=== PATIENT | female | born 1975 | race Caucasian/White ===

== ENCOUNTER 2022-08-26 18:23 | Observation (INO) | payer MEDICAID, SELFPAY ==
[2022-08-26 18:28] VITALS: BP 137/90; PULSE 127; RESP 18; TEMP 36.9; O2SAT 98
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
--- NOTE | 2022-08-26 18:46 | USR_ITS ---
PROCEDURE INFORMATION: Exam: US Duplex Right Lower Extremity Veins, Limited Exam date and time: 08/26/2022 7:18 PM Age: 46 years old Clinical indication: Edema, localized; Lower extremity, right; Additional info: Redness swelling, R/O dvt TECHNIQUE: Imaging protocol: Real-time duplex ultrasound of the right extremity with 2-D martinez scale, color Doppler flow and spectral waveform analysis including responses to compression and other maneuvers (when performed) with image documentation. Limited exam was focused on the right lower extremity veins. COMPARISON: CR (LOW EXM, ) 08/26/2022 7:14 PM FINDINGS: Right deep veins: Unremarkable. The common femoral, femoral, proximal profunda femoral and popliteal veins are patent without thrombus. Normal Doppler waveforms. Normal compressibility and/or augmentation response. Right superficial veins: Unremarkable. Saphenofemoral junction is patent without thrombus. Soft tissues: Unremarkable. US/[place] [id number] IMPRESSION: No evidence of deep vein thrombosis.
--- NOTE | 2022-08-26 18:55 | XRR_ITS ---
PROCEDURE INFORMATION: Exam: XR Chest Exam date and time: 08/26/2022 7:13 PM Age: 46 years old Clinical indication: Other: Crackles; Additional info: Crackles in lung TECHNIQUE: Imaging protocol: Radiologic exam of the chest. Views: 1 view. COMPARISON: No relevant prior studies available. FINDINGS: Lungs: Unremarkable. No consolidation. Pleural spaces: Unremarkable. No pleural effusion. No pneumothorax. Heart/Mediastinum: Unremarkable. No cardiomegaly. Bones/joints: Unremarkable. XR/XR chest 1V portable [id number] IMPRESSION: No acute findings.
--- NOTE | 2022-08-26 18:57 | XRR_ITS ---
PROCEDURE INFORMATION: Exam: XR Right Foot Exam date and time: 08/26/2022 7:14 PM Age: 46 years old Clinical indication: Cellulitis; Foot and toes; Right; Patient HX: Wounds; Additional info: Injury toe TECHNIQUE: Imaging protocol: Radiologic exam of the right foot. Views: 3 or more views. COMPARISON: No relevant prior studies available. FINDINGS: Bones/joints: Osseous structures are intact. Negative for fracture. Soft tissues: Soft tissue swelling within the foot and distal lower extremity. XR/XR foot RT min 3V* [id number] IMPRESSION: 1. No acute osseous abnormalities. 2. Soft tissue swelling within the foot and distal lower extremity.
[2022-08-26 19:00] LABS: Basophils % 0.3 %; Hematocrit 40.6 % (37.0-47.0); Hemoglobin 13.1 g/dL (11.5-15.3); Lymphocytes # 0.7 10^3/uL (0.8-4.8); Lymphocytes % 4.6 %; Mean Corpuscular HGB Conc 32.3 g/dL (30.0-36.0); Mean Corpuscular Hemoglobin 27.9 pg (28.0-34.0); Mean Corpuscular Volume 86.4 fl (81-99); Mean Platelet Volume 10.8 fL (7.4-10.4); Monocytes # 0.6 10^3/uL (0.2-0.9); Monocytes % 3.9 %; Neutrophils # 14.34 10^3/uL (1.8-7.7); Neutrophils % 90.6 %; Nucleated Red Blood Cells % 0 %; Platelet Count 226 10^3/cmm (130-400); Red Cell Distribution Width 13.5 % (12.1-15.1); White Blood Count 15.8 10^3/uL (4.0-10.0)
[2022-08-26 19:15] LABS: HCG, Serum Qual Negative (Negative)
[2022-08-26 19:18] LABS: Alanine Aminotransferase 11 U/L (0-33); Albumin Level 3.8 g/dL (3.5-5.2); Alkaline Phosphatase 65 U/L (35-105); Anion Gap 18.6 (5-19); Aspartate Amino Transferase 15 U/L (0-32); Blood Urea Nitrogen 13 mg/dL (6-20); Calcium 9.2 mg/dL (8.5-10.5); Carbon Dioxide 21 mmol/L (22-29); Chloride 102 mmol/L (98-107); Globulin 3.7 g/dL (1.3-4.6); Glomerular Filtration Rate 90.9 mL/min (90-130); Glucose 192 mg/dL (65-115); Lipase 15 U/L (13-60); Osmolality Calculated 291 mOsm/kg (285-295); Potassium 3.6 mmol/L (3.5-5.1); Sodium 138 mmol/L (136-145); Total Protein 7.5 g/dL (6.6-8.7)
[2022-08-26] MEDS: sodium chloride 0.9% 1,000 ML 999 ML IV (19:19)
[2022-08-26] MEDS: sulfamethoxazole-trimeth DS 160-800 mg Tablet 1 TAB PO (20:14)
[2022-08-26] MEDS: cefTRIAXone 1,000 MG in sodium chloride 0.9% (plus) 50 ML 100 MG IV (20:14)
--- NOTE | 2022-08-26 20:17 | CTR_ITS ---
PROCEDURE INFORMATION: Exam: CT Right Lower Extremity With Contrast, Foot Exam date and time: 08/26/2022 7:46 PM Age: 46 years old Clinical indication: Pain; Foot; Right; Additional info: R/O abscess, osteomy. TECHNIQUE: Imaging protocol: CT of the right lower extremity with intravenous contrast was performed. Exam focused on the foot. Radiation optimization: All CT scans at this facility use at least one of these dose optimization techniques: automated exposure control; mA and/or kV adjustment per patient size (includes targeted exams where dose is matched to clinical indication); or iterative reconstruction. Contrast material: OMNI 350; Contrast volume: 100 ml; Contrast route: INTRAVENOUS (IV); REPORTING DATA: Count of CT and Cardiac NM exams in prior 12 months: This patient has received 0 known CTs and 0 known cardiac nuclear medicine studies in the 12 months prior to the current study. COMPARISON: CR (LOW EXM, ) 08/26/2022 7:14 PM RADIATION DOSE METRICS: Total DLP (mGy-cm): 443.22 FINDINGS: Bones/joints: No acute fracture or dislocation. No irregular cortical erosive changes. Soft tissues: Extensive subcutaneous edema and skin thickening within the distal lower extremity and foot. No definable walled-off fluid collection/abscess is seen. No subcutaneous emphysema. Scattered coarse calcifications noted along the subcutaneous tissues of the anterior distal lower extremity. CT/CT foot RT w con [id number] IMPRESSION: 1. No evidence of abscess or osteomyelitis. 2. Extensive subcutaneous edema and skin thickening within the distal lower extremity and foot.
[2022-08-26] MEDS: iohexol 350 mg/mL 500 mL Btl (per mL) IV (20:24)
[2022-08-26 20:29] LABS: Lactic Sepsis W/Reflex 1.6 mmol/L (0.5-2.2)
[2022-08-26 20:44] LABS: C Reactive Protein 325.4 mg/L (0.0-4.9)
[2022-08-26 20:49] LABS: Erythrocyte Sedimentation Rate 40 mm/hr (0-15)
[2022-08-26] MEDS: piperacillin-tazobactam 3.375 GM in sodium chloride 0.9% (plus) 50 ML IV (21:02)
[2022-08-26] MEDS: hyDROXYzine 25 mg Capsule PO (21:03)
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
[2022-08-26 21:57] VITALS: BP 124/80; PULSE 124; RESP 20; TEMP 37.1; O2SAT 99
[2022-08-26 22:15] VITALS: O2SAT 98
[2022-08-26 22:40] VITALS: BMI 39.6
--- NOTE | 2022-08-26 23:10 | PC.PHAR ---
Pharmacokinetic dosing service Date: 08/27/22 Time: 2314 Objective: Patient: Donna Cosby Floor: 278-2 Age: 46 yo Serum creatinine: 0.7 mg/dL Height: 63.0 Inches Weight (kg): 101.661 Diagnosis: Relevant medical/social history: Cultures and sensitivities: Other labs: Assessment: IBW (kg): 52.40 Dosing wt(kg): 101.661 Estimated Creatinine clearance (ml/min): 84.8 CRCL method: Cockcroft and Gault using ibw(default). Drug selected: Vancomycin Loading dose (mg): 0 Vd (liters): 91.5 (factor used: 0.9 L/kg) Farhan (hr-1): 0.075 Half life (hrs): 9.24 Recommended dose: 1500 mg Interval: 12 hrs Infusion time (hrs): 1.5 Predicted peak (mcg/mL): 26.1 Predicted trough (mcg/mL): 11.87 Total body weight is being used for vancomycin dosing. Renal function is stable [ ] /unstable [ ] Recommendations: Give Vancomycin 1500 mg q 12 hrs with an expected Cpeak of 26.1 mcg/ml and an expected Ctrough of 11.87 mcg/ml Renal dosing of other antibiotics (review renal dosing of other medications and list guidelines here): Thank you for the consult, will continue to follow. Signature: Sharlene Weiss [facility]
[2022-08-26] MEDS: sodium chloride 0.9% 1,000 ML 50 ML IV (23:34)
[2022-08-26] MEDS: vancomycin 1,500 MG/300 ML PIGGYBACK 200 MG IV (23:35)
[2022-08-26 23:39] LABS: Procalcitonin 5.04 ng/mL (0-0.5); Thyroid Stimulating Hormone 2.19 uIU/mL (0.27-4.20); Vitamin B12 573 pg/mL (232-1245)
[2022-08-26 23:40] LABS: Folate Level 4.5 ng/mL (4.8-37.3)
[2022-08-26] MEDS: heparin 5,000 unit/mL INJ 1 mL 5000 UNIT SUBCUT (23:47)
[2022-08-27] VITALS (8 sets, daily range): BP systolic 107–129; BP diastolic 71–83; PULSE 98–116; RESP 15–23; TEMP 36.7–39.1; O2SAT 95–97
[2022-08-27] MEDS: acetaminophen 325 mg Tablet 650 MG PO ×3 (01:07→20:36)
[2022-08-27 02:46] LABS: Amphetamines Screen Urine Negative (Negative); Barbiturates Screen Urine Negative (Negative); Benzodiazepines Screen Urine Negative (Negative); Cocaine Screen Urine Negative (Negative); Opiate Screen Urine Negative (Negative); PCP Screen Urine Negative (Negative); THC Screen Urine Negative (Negative)
[2022-08-27 04:46] LABS: Basophils % 0.1 %; Hematocrit 38.7 % (37.0-47.0); Hemoglobin 12.4 g/dL (11.5-15.3); Lymphocytes # 0.7 10^3/uL (0.8-4.8); Lymphocytes % 5.3 %; Mean Corpuscular Hemoglobin 27.9 pg (28.0-34.0); Mean Platelet Volume 10.9 fL (7.4-10.4); Monocytes # 0.6 10^3/uL (0.2-0.9); Monocytes % 4.1 %; Neutrophils # 11.89 10^3/uL (1.8-7.7); Neutrophils % 88.9 %; Nucleated Red Blood Cells % 0 %; Platelet Count 181 10^3/cmm (130-400); Red Blood Count 4.45 10^6/uL (4.1-5.3); Red Cell Distribution Width 13.4 % (12.1-15.1); White Blood Count 13.4 10^3/uL (4.0-10.0)
[2022-08-27 05:05] LABS: Estmated Average Glucose 137; Hemoglobin A1C 6.4 % (4.0-6.0)
[2022-08-27 05:13] LABS: Alanine Aminotransferase 18 U/L (0-33); Alkaline Phosphatase 60 U/L (35-105); Anion Gap 14.2 (5-19); Aspartate Amino Transferase 31 U/L (0-32); Blood Urea Nitrogen 10 mg/dL (6-20); Calcium 8.4 mg/dL (8.5-10.5); Carbon Dioxide 22 mmol/L (22-29); Chloride 109 mmol/L (98-107); Chol HDL Ratio 1.59 mg/dL (0.0-4.40); Cholesterol 113 mg/dL (0-200); Globulin 3.2 g/dL (1.3-4.6); Glomerular Filtration Rate 77.9 mL/min (90-130); Glucose 209 mg/dL (65-115); HDL Cholesterol 71 mg/dL (60-100); LDL Cholesterol Calculated 30 mg/dL (50-129); LDL HDL Ratio 0.42 RATIO (0.00-3.22); Magnesium 1.9 mg/dL (1.7-2.3); Osmolality Calculated 299 mOsm/kg (285-295); Phosphorus 1.7 mg/dL (2.5-4.5); Potassium 3.2 mmol/L (3.5-5.1); Sodium 142 mmol/L (136-145); Total Bilirubin 1.4 mg/dL (0.15-1.2); Total Protein 6.2 g/dL (6.6-8.7); Triglycerides 62 mg/dL (0-150)
[2022-08-27] MEDS: piperacillin-tazobactam 3.375 GM in sodium chloride 0.9% (plus) 50 ML IV ×3 (05:39→21:27)
[2022-08-27] MEDS: heparin 5,000 unit/mL INJ 1 mL 5000 UNIT SUBCUT ×3 (05:41→21:28)
[2022-08-27 05:51] LABS: Add Urine Microscopic? YES; Bilirubin Urine Neg (Negative); Blood Urine 2+ (Negative); Glucose Urine UA Trace (Normal); Ketones Urine Negative (Negative); Leukocyte Esterase Urine 1+ (Negative); Nitrate Urine Negative (Negative); Protein Urine Neg (Negative); Specific Gravity, Urine 1.005 (1.005-1.030); Urine Appearance Clear (CLEAR); Urine Color Yellow (Yellow); Urobilinogen Urine Neg (Negative); pH Urine 5 (5-7)
[2022-08-27 05:54] LABS: Add Urine Culture? Yes; Bacteria Urine 1+ /hpf; Mucus Urine TRACE /hpf; Squamous Epithelial Cell Urine 0-4 /hpf (0-5)
[2022-08-27 06:47] LABS: Glucose Point of Care 169 mg/dL (70-110)
--- NOTE | 2022-08-27 07:41 | PC.PHAR ---
pts family states the pt takes no rx or otc medications
[2022-08-27] MEDS: insulin lispro 100 unit/1 mL SUBCUT ×2 (08:08→12:02)
[2022-08-27] MEDS: famotidine 20 mg Tablet PO ×2 (08:08→17:44)
[2022-08-27] MEDS: ondansetron 2 mg/ML SDV 2 mL 4 MG IVP (10:37)
[2022-08-27 11:34] LABS: Glucose Point of Care 178 mg/dL (70-110)
[2022-08-27] MEDS: vancomycin 1,500 MG/300 ML PIGGYBACK 200 MG IV (12:04)
--- NOTE | 2022-08-27 12:45 | US_ITS ---
WS: [id number] RIGHT UPPER QUADRANT ULTRASOUND HISTORY: rt upper quadrant pain COMPARISON: None available. Liver: 19.9 cm in length. Mildly enlarged liver with diffuse mild hepatic steatosis. No mass identifi ed. No bile duct dilatation. Portal Vein: Normal hepatopetal flow with monophasic waveform. Gallbladder: Normally distended gallbladder with numerous stones present. Stones of multiple cholelit hiasis measuring up to 2.6 cm in diameter. The gallbladder wall is just slightly over normal at 3.9 m m. No pericholecystic fluid. CBD: 0.5 cm Pancreas: Head and tail are partially visualized secondary to bowel gas. Right kidney: 11.7 cm in length. Normal size and echogenicity. No hydronephrosis or mass. Aorta and IVC: Unremarkable abdominal aorta and IVC. No ascites. US/US abdomen limited [id number] IMPRESSION: 1. Cholelithiasis with mild gallbladder wall thickening. No pericholecystic fl uid. Numerous stones within the gallbladder. No pericholecystic fluid. 2. No bile duct dilatation.
--- NOTE | 2022-08-27 14:19 | PM.PN ---
Subjective Subjective: Patient was seen and examined this morning, noted Tmax over last 24 hours: 102.3. Her other vitals and labs have been reviewed. Medications: Medication Review Details: Generic Name Dose Route Start Last Admin Trade Name Mell PRN Reason Stop Dose Admin Acetaminophen 650 mg 08/26/22 21:57 08/27/22 08:08 Acetaminophen 32 5 Mg Tablet PO 650 mg Q6H PRN Administration Mild/Mod Pain Or Temp >/= 101 Famotidine 20 mg 08/27/22 09:00 08/27/22 08:08 Famotidine 20 Mg Tablet PO 20 mg BID GOLD Administration Heparin Sodium (Po rcine) 5,000 unit 08/26/22 21:57 08/27/22 13:57 Heparin 5,000 Un it/Ml Inj 1 Ml SUBCUT 5,000 unit Q8H GOLD Administration Piperacillin Sod/T azobactam 50 mls @ 12.5 mls /hr 08/27/22 05:00 08/27/22 13:54 Sod 3.375 gm/ So dium Chloride IV 12.5 mls/hr Q8H GOLD Administration Protocol Vancomycin/PEG/NAD A/Lysine/Water 1,500 mg in 300 m ls @ 200 mls/hr 08/27/22 00:00 08/27/22 13:40 Vancocin IV Infused Q12H GOLD Infusion Insulin Human Lisp ro 0 unit 08/27/22 08:00 08/27/22 12:02 Insulin Lispro 1 00 Unit/1 Ml SUBCUT 2 unit WM&BEDTIME GOLD Administration Protocol Ondansetron HCl 4 mg 08/26/22 21:57 08/27/22 10:37 Ondansetron 2 Mg /Ml Sdv 2 Ml IVP 4 mg Q8H PRN Administration vomiting, or N/V if npo Vitals/I&O/Wt Last Vital Signs Temp 100.6 F H 08/27/22 08:00 Pulse 100 08/27/22 11:17 Resp 18 08/27/22 11:17 BP 111/75 08/27/22 11:17 Pulse Ox 95 08/27/22 11:17 O2 Del Method 08/27/22 11:17 08/26/22 08/27/22 08/27/22 22:59 06:59 14:59 Intake Total 1220 / 1220 780 / 2000 1017.5 / 1017.5 Balance 1220 / 1220 / 1999 1017.5 / 1017.5 Weight last 48 hrs Weight 101.661 kg Physical Exam Const: COMMON NORMALS: patient oriented x3 HENMT: COMMON NORMALS: normocephalic and atraumatic HEAD & SCALP: normocephalic and atraumatic Resp: COMMON NORMALS: normal respiratory effort, No retractions, No use of accessory muscles and clear to auscultation bilaterally EFFORT & INSPECTION: Yes symmetric chest movement AUSCULTATION: clear to auscultation bilaterally Cardio: COMMON NORMALS: regular rate, regular rhythm, S1 normal heart sound present, S2 normal heart sound present, No gallops present (Cardio), No murmurs present (Cardio), No rub (Cardio) and Peripheral pulses 2+ throughout RATE: regular rate RHYTHM: regular rhythm HEART SOUNDS: S1 normal heart sound present and S2 normal heart sound present PERIPHERAL PULSES: Peripheral pulses 2+ throughout GI: COMMON NORMALS: Normal to inspection, nondistended, normoactive bowel sounds present, Soft to palpation, non-tender, No hepatosplenomegaly present and no masses AUSCULTATION: Yes normoactive bowel sounds PALPATION: Yes Soft to palpation and Yes No hepatosplenomegaly present RECTAL EXAM: deferred Extremity: NARRATIVE EXTREMITY EXAM: RT lower extremity redness and swelling present, bilateral lower extremity 2+ pitting edema. Neuro: COMMON NORMALS: patient oriented x3 Data 08/27/22 04:28 08/27/22 04:28 Micro: Microbiology 08/27/22 02:25 Bacterial Antigens - Final Urine Kidney 08/26/22 22:49 Blood Culture - Preliminary Blood SPECIMEN COLLECTED 08/26/22 22:47 Blood Culture - Preliminary Blood SPECIMEN COLLECTED A&P Assessment and plan (1) Cellulitis of right lower leg: ?CT foot RT w con: No evidence of abscess or osteomyelitis.Extensive subcutaneous edema and skin thickening within the distal lower extremity and foot. ESR : 40 , CRP : 325 Blood culture Procalcitonin 5.04 Currently she is on broad-spectrum antibiotics Vanco and Zosyn Possible podiatry consult (2) Diabetes mellitus: HbA1c:6.4 Not on medication at home. We will discharge her on oral antidiabetic medication preferably metformin. Start on insulin sliding scale low-dose protocol. Qualifiers: Diabetes mellitus complication detail: with other skin complication Diabetes mellitus complication status: with skin complications Diabetes mellitus motorbike courier insulin use: without skilled nursing use Diabetes mellitus type: type 2 Qualified Code(s): E11.628 - Type 2 diabetes mellitus with other skin complications (3) Sepsis: Patient currently meets sepsis criteria: As patient has SIRS along with known source of infection Patient meets SIRS criteria with fever leukocytosis tachycardia, current source of infection is cellulitis. Follow blood culture Urine culture Ultrasound abdomen: As she is complaining of right upper quadrant abdominal pain. Currently she is appropriately covered with broad-spectrum antibiotic Plan Full code. Carb consistent diet. Heparin 5000 every 8 hourly. Famotidine for PUD prophylaxis. Discharge planning: Patient will most likely need extensive wound care and oral antibiotics on discharge. Patient will need to be set up with a primary care provider prior to discharge. Attestations Medical Necessity Statement*: Needs to be in hospital for management of cellulitis, sepsis, need for IV antibiotic. Coding Level of Care Code 25889 Diagnoses Cellulitis of right lower leg L03.115 Diabetes mellitus E11.628 Diabetes mellitus complication detail: with other skin complication Diabetes mellitus complication status: with skin complications Diabetes mellitus skilled nursing insulin use: without skilled nursing use Diabetes mellitus type: type 2 Sepsis A41.9
[2022-08-27] MEDS: potassium chloride ER 20 mEq Tablet 40 MEQ PO (15:00)
[2022-08-27 16:57] LABS: Glucose Point of Care 128 mg/dL (70-110)
--- NOTE | 2022-08-27 18:33 | PC.NURSE ---
Patient is currently resting in bed with her water purifier's at bedside. Pt did have a shower and linen change on this shift. Pt has complained of some pain in her upper right quadrant and is awaiting an ultrasound. Pt has been NPO since lunch and has dinner in te patient fridge when she is no longer NPO. This nurse has addressed any questions from the patient. Call light and table are within reach.
[2022-08-27 21:23] LABS: Glucose Point of Care 125 mg/dL (70-110)
[2022-08-27] MEDS: ALPRAZolam 0.5 mg Tablet PO (22:06)
[2022-08-27] MEDS: nystatin cream 30 gm 1 APPLIC TOPICAL (22:23)
[2022-08-28] VITALS (9 sets, daily range): BP systolic 100–117; BP diastolic 65–76; PULSE 84–104; RESP 14–19; TEMP 36.6–37.7; O2SAT 94–100
[2022-08-28] MEDS: vancomycin 1,500 MG/300 ML PIGGYBACK 200 MG IV ×2 (00:12→12:14)
[2022-08-28 04:35] LABS: Basophils # 0.1 10^3/uL (0.0-0.1); Basophils % 0.3 %; Eosinophils # 0.1 10^3/uL (0.0-0.8); Eosinophils % 0.3 %; Hemoglobin 11.4 g/dL (11.5-15.3); Lymphocytes # 0.9 10^3/uL (0.8-4.8); Lymphocytes % 5.6 %; Mean Corpuscular HGB Conc 31.7 g/dL (30.0-36.0); Mean Corpuscular Hemoglobin 28.3 pg (28.0-34.0); Mean Corpuscular Volume 89.3 fl (81-99); Mean Platelet Volume 11.3 fL (7.4-10.4); Monocytes # 0.7 10^3/uL (0.2-0.9); Monocytes % 4.8 %; Neutrophils # 13.15 10^3/uL (1.8-7.7); Nucleated Red Blood Cells % 0 %; Platelet Count 186 10^3/cmm (130-400); Red Blood Count 4.03 10^6/uL (4.1-5.3); Red Cell Distribution Width 13.9 % (12.1-15.1); White Blood Count 15.5 10^3/uL (4.0-10.0)
[2022-08-28 04:59] LABS: Alanine Aminotransferase 16 U/L (0-33); Albumin Level 2.7 g/dL (3.5-5.2); Alkaline Phosphatase 71 U/L (35-105); Anion Gap 13.6 (5-19); Aspartate Amino Transferase 15 U/L (0-32); Blood Urea Nitrogen 14 mg/dL (6-20); Calcium 8.3 mg/dL (8.5-10.5); Carbon Dioxide 23 mmol/L (22-29); Chloride 112 mmol/L (98-107); Globulin 3.6 g/dL (1.3-4.6); Glomerular Filtration Rate 77.9 mL/min (90-130); Glucose 116 mg/dL (65-115); Osmolality Calculated 301 mOsm/kg (285-295); Potassium 3.6 mmol/L (3.5-5.1); Sodium 145 mmol/L (136-145); Total Bilirubin 1.6 mg/dL (0.15-1.2); Total Protein 6.3 g/dL (6.6-8.7)
[2022-08-28] MEDS: heparin 5,000 unit/mL INJ 1 mL 5000 UNIT SUBCUT ×3 (05:29→21:50)
[2022-08-28] MEDS: piperacillin-tazobactam 3.375 GM in sodium chloride 0.9% (plus) 50 ML IV ×3 (05:29→20:18)
[2022-08-28 06:37] LABS: Glucose Point of Care 128 mg/dL (70-110)
[2022-08-28] MEDS: famotidine 20 mg Tablet PO ×2 (09:33→17:23)
[2022-08-28] MEDS: bisacodyl 5 mg Tablet 10 MG PO (09:33)
[2022-08-28] MEDS: nystatin cream 30 gm 1 APPLIC TOPICAL ×2 (09:39→18:34)
[2022-08-28 11:45] LABS: Glucose Point of Care 218 mg/dL (70-110)
--- NOTE | 2022-08-28 11:58 | PM.PN ---
Subjective Subjective: Patient was seen and examined this morning, she has remained afebrile overnight. No other acute events Medications: Medication Review Details: Generic Name Dose Route Start Last Admin Trade Name Hermelindoq PRN Reason Stop Dose Admin Acetaminophen 650 mg 08/26/22 21:57 08/27/22 20:36 Acetaminophen 32 5 Mg Tablet PO 650 mg Q6H PRN Administration Mild/Mod Pain Or Temp >/= 101 Alprazolam 0.5 mg 08/27/22 21:38 08/27/22 22:06 Alprazolam 0.5 M g Tablet PO 0.5 mg ONCE PRN Administration ANXIETY Bisacodyl 10 mg 08/26/22 21:57 08/28/22 09:33 Bisacodyl 5 Mg T ablet PO 10 mg DAILY PRN Administration Constipation (see protocol) Protocol Famotidine 20 mg 08/27/22 09:00 08/28/22 09:33 Famotidine 20 Mg Tablet PO 20 mg BID GOLD Administration Heparin Sodium (Po rcine) 5,000 unit 08/26/22 21:57 08/28/22 05:29 Heparin 5,000 Un it/Ml Inj 1 Ml SUBCUT 5,000 unit Q8H GOLD Administration Piperacillin Sod/T azobactam 50 mls @ 12.5 mls /hr 08/27/22 05:00 08/28/22 09:39 Sod 3.375 gm/ So dium Chloride IV Infused Q8H GOLD Infusion Protocol Vancomycin/PEG/NAD A/Lysine/Water 1,500 mg in 300 m ls @ 200 mls/hr 08/27/22 00:00 08/28/22 01:50 Vancocin IV Infused Q12H GOLD Infusion Insulin Human Lisp ro 0 unit 08/27/22 08:00 08/28/22 08:12 Insulin Lispro 1 00 Unit/1 Ml SUBCUT Not Given WM&BEDTIME GOLD Protocol Nystatin 1 applic 08/27/22 21:40 08/28/22 09:39 Nystatin Cream 3 0 Gm TOPICAL 1 applic BID GOLD Administration Ondansetron HCl 4 mg 08/26/22 21:57 08/27/22 10:37 Ondansetron 2 Mg /Ml Sdv 2 Ml IVP 4 mg Q8H PRN Administration vomiting, or N/V if npo Vitals/I&O/Wt Last Vital Signs Temp 97.8 F 08/28/22 08:00 Pulse 101 H 08/28/22 08:00 Resp 19 H 08/28/22 08:00 BP 117/76 08/28/22 08:00 Pulse Ox 100 08/28/22 08:00 O2 Del Method 08/28/22 08:00 08/27/22 08/28/22 08/28/22 22:59 06:59 14:59 Intake Total 150 / 1167.5 470 / 1637.5 310 / 310 Output Total 900 / 900 Balance 150 / 1167.5 -430 / 737.5 310 / 310 Weight last 48 hrs Weight 95.311 kg Weight 101.661 kg Physical Exam Const: COMMON NORMALS: patient oriented x3 HENMT: COMMON NORMALS: normocephalic and atraumatic HEAD & SCALP: normocephalic and atraumatic Resp: COMMON NORMALS: normal respiratory effort, No retractions, No use of accessory muscles and clear to auscultation bilaterally EFFORT & INSPECTION: Yes symmetric chest movement AUSCULTATION: clear to auscultation bilaterally Cardio: COMMON NORMALS: regular rate, regular rhythm, S1 normal heart sound present, S2 normal heart sound present, No gallops present (Cardio), No murmurs present (Cardio), No rub (Cardio) and Peripheral pulses 2+ throughout RATE: regular rate RHYTHM: regular rhythm HEART SOUNDS: S1 normal heart sound present and S2 normal heart sound present PERIPHERAL PULSES: Peripheral pulses 2+ throughout GI: COMMON NORMALS: Normal to inspection, nondistended, normoactive bowel sounds present, Soft to palpation, non-tender, No hepatosplenomegaly present and no masses AUSCULTATION: Yes normoactive bowel sounds PALPATION: Yes Soft to palpation and Yes No hepatosplenomegaly present RECTAL EXAM: deferred Extremity: NARRATIVE EXTREMITY EXAM: RT lower extremity redness and swelling present, bilateral lower extremity 2+ pitting edema. Neuro: COMMON NORMALS: patient oriented x3 Data 08/28/22 04:16 08/28/22 04:16 Micro: Microbiology 08/27/22 02:25 Urine Culture - Preliminary Urine,Clean Catch 08/26/22 22:49 Blood Culture - Preliminary Blood NEGATIVE TO DATE 08/26/22 22:47 Blood Culture - Preliminary Blood NEGATIVE TO DATE 08/27/22 09:52 Gram Stain - Final Toe - #1 08/27/22 02:25 Bacterial Antigens - Final Urine Kidney A&P Assessment and plan (1) Cellulitis of right lower leg: ?CT foot RT w con: No evidence of abscess or osteomyelitis.Extensive subcutaneous edema and skin thickening within the distal lower extremity and foot. ESR : 40 , CRP : 325 Blood culture Procalcitonin 5.04 Currently she is on broad-spectrum antibiotics Vanco and Zosyn Possible podiatry consult (2) Diabetes mellitus: HbA1c:6.4 Not on medication at home. We will discharge her on oral antidiabetic medication preferably metformin. Start on insulin sliding scale low-dose protocol. 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 Blood culture:NTD Urine culture: Ultrasound abdomen: As she was complaining of right upper quadrant abdominal pain.cholelithiasis with mild gallbladder wall thickening. No pericholecystic fluid. Numerous stones within the gallbladder. No pericholecystic fluid. No bile duct dilatation. Currently she is appropriately covered with broad-spectrum antibiotic Plan Full code. Carb consistent diet. Heparin 5000 every 8 hourly. Famotidine for PUD prophylaxis. Discharge planning: Patient will most likely need extensive wound care and oral antibiotics on discharge. Patient will need to be set up with a primary care provider prior to discharge. Attestations Medical Necessity Statement*: In hospital for management of sepsis Coding Level of Care Code 16146 Diagnoses Cellulitis of right lower leg L03.115 Diabetes mellitus E11.628 Diabetes mellitus complication detail: with other skin complication Diabetes mellitus complication status: with skin complications Diabetes mellitus remote computer terminal operator insulin use: without custodial use Diabetes mellitus type: type 2 Sepsis A41.9
[2022-08-28] MEDS: insulin lispro 100 unit/1 mL SUBCUT ×3 (12:14→21:49)
[2022-08-28 12:30] LABS: Vancomycin Trough 13.3 ug/mL (10-15)
[2022-08-28 16:58] LABS: Glucose Point of Care 170 mg/dL (70-110)
[2022-08-28] MEDS: ondansetron 2 mg/ML SDV 2 mL 4 MG IVP (20:13)
[2022-08-28 21:12] LABS: Glucose Point of Care 162 mg/dL (70-110)
[2022-08-29] MEDS: vancomycin 1,500 MG/300 ML PIGGYBACK 200 MG IV (00:34)
[2022-08-29 04:00] VITALS: BP 114/74; PULSE 87; RESP 18; TEMP 37.6; O2SAT 98
[2022-08-29] MEDS: piperacillin-tazobactam 3.375 GM in sodium chloride 0.9% (plus) 50 ML IV (04:07)
[2022-08-29] MEDS: acetaminophen 325 mg Tablet 650 MG PO (04:16)
[2022-08-29] MEDS: nystatin cream 30 gm 1 APPLIC TOPICAL (04:17)
[2022-08-29 05:28] LABS: Basophils % 0.3 %; Eosinophils # 0.1 10^3/uL (0.0-0.8); Eosinophils % 0.5 %; Hematocrit 32.7 % (37.0-47.0); Hemoglobin 10.4 g/dL (11.5-15.3); Lymphocytes # 1.3 10^3/uL (0.8-4.8); Lymphocytes % 10.3 %; Mean Corpuscular HGB Conc 31.8 g/dL (30.0-36.0); Mean Corpuscular Volume 87.9 fl (81-99); Mean Platelet Volume 11.5 fL (7.4-10.4); Monocytes # 0.7 10^3/uL (0.2-0.9); Monocytes % 5.2 %; Neutrophils # 10.43 10^3/uL (1.8-7.7); Neutrophils % 82.8 %; Nucleated Red Blood Cells % 0 %; Platelet Count 212 10^3/cmm (130-400); Red Blood Count 3.72 10^6/uL (4.1-5.3); Red Cell Distribution Width 14.1 % (12.1-15.1); White Blood Count 12.6 10^3/uL (4.0-10.0)
[2022-08-29 05:52] LABS: Alanine Aminotransferase 16 U/L (0-33); Albumin Level 2.6 g/dL (3.5-5.2); Alkaline Phosphatase 95 U/L (35-105); Anion Gap 15.2 (5-19); Aspartate Amino Transferase 20 U/L (0-32); Blood Urea Nitrogen 12 mg/dL (6-20); Calcium 7.8 mg/dL (8.5-10.5); Carbon Dioxide 21 mmol/L (22-29); Chloride 107 mmol/L (98-107); Globulin 3.5 g/dL (1.3-4.6); Glomerular Filtration Rate 108.6 mL/min (90-130); Glucose 118 mg/dL (65-115); Osmolality Calculated 291 mOsm/kg (285-295); Potassium 3.2 mmol/L (3.5-5.1); Sodium 140 mmol/L (136-145); Total Bilirubin 1.1 mg/dL (0.15-1.2); Total Protein 6.1 g/dL (6.6-8.7)
[2022-08-29 06:00] VITALS: PULSE 69
[2022-08-29] MEDS: heparin 5,000 unit/mL INJ 1 mL 5000 UNIT SUBCUT (06:25)
[2022-08-29 08:00] VITALS: BP 104/71; PULSE 86; RESP 17; TEMP 37.3; O2SAT 95
[2022-08-29 08:27] LABS: Glucose Point of Care 120 mg/dL (70-110)
[2022-08-29] MEDS: potassium chloride ER 20 mEq Tablet 40 MEQ PO (08:35)
[2022-08-29] MEDS: famotidine 20 mg Tablet PO (08:36)
[2022-08-29 11:13] VITALS: BP 104/71; PULSE 86; RESP 17; TEMP 37.3; O2SAT 95
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
== END 2022-08-29 11:14 | disposition home or self-care (01) ==
LOC: ER 20:27 → MEDSURG 21:18
PROVIDERS: Emergency Medicine; Admitting Provider Student in an Organized Health Care Education/Training Program; Emergency Provider Nurse Practitioner Family; Visit Provider Internal Medicine
DX: A41.9 Sepsis, unspecified organism (principal); L03.115 Cellulitis of right lower limb; E11.628 Type 2 diabetes mellitus with other skin complications; R65.10 Systemic inflammatory response syndrome (SIRS) of non-infectious origin without acute organ dysfunction; R60.0 Localized edema
CPT/HCPCS: 36415; 36416; 71045; 73630; 73701; 76705; 80053; 80061; 80202; 80306; 81001; 82607; 82746; 82962; 83036; 83605; 83690; 83735; 84100; 84145; 84443; 84703; 85025; 85651; 86140; 86403; 87040; 87070; 87075; 87086; 87186; 87205; 87641; 93971; 94664; 96365; 96367; 96372; 99285; G0378; J0696; J1644; J1815; J2405; J2543; J3370; J7030; Q9967

== ENCOUNTER → 2022-09-21 14:54 | Outpatient (BNVA) | payer MEDICAID, SELFPAY | PROVIDERS: Visit Provider Thoracic Surgery (Cardiothoracic Vascular Surgery) | DX: I83.019 Varicose veins of right lower extremity with ulcer of unspecified site (principal); E11.42 Type 2 diabetes mellitus with diabetic polyneuropathy; E11.51 Type 2 diabetes mellitus with diabetic peripheral angiopathy without gangrene | CPT/HCPCS: 87070; 87176; 87205 ==

== ENCOUNTER 2025-01-25 14:33 | Outpatient (CLI) | payer MEDICAID, SELFPAY ==
--- NOTE | 2025-01-25 14:41 | USCV_ITS ---
Donna Cosby Age: 49 Gender: F : 1975 Exam Date: 01/25/2025 14:47 Ordering Phys: Abeba Wood DO Technologist: JACE [place] [facility] [place]: LLE Pain HISTORY: Lower extremity pain. PROCEDURES: Venous duplex imaging was performed in only the left lower extremity. The following venous structures were evaluated: common femoral vein, profunda vein, proximal portion of the greater saphenous vein, superficial femoral vein, and the popliteal vein. In addition, the posterior tibial and peroneal trunk were evaluated. Serial compression, augmentation maneuvers, and spectral Doppler flow evaluation were performed. FINDINGS: No evidence of DVT seen in any vessel visualized at this time. CONCLUSIONS No evidence of left lower extremity DVT. Mustapha Mohan MD (Electronically Signed) Final Date: 25 January 2025 15:33 S
== END 2025-01-25 14:34 | disposition home or self-care (01) ==
LOC: RAD 14:34
PROVIDERS: Visit Provider Family Medicine
DX: M79.605 Pain in left leg (principal)
CPT/HCPCS: 93971

== ENCOUNTER 2025-02-05 09:16 | Outpatient (CLI) | payer MEDICAID, SELFPAY ==
--- NOTE | 2025-02-05 09:23 | USR_ITS ---
PROCEDURE INFORMATION: Exam: US Duplex Bilateral Lower Extremity Arteries Exam date and time: 02/05/2025 10:23 AM Age: 49 years old Clinical indication: Pain; Leg, lower; Bilateral; Additional info: Left leg pain/r leg pain TECHNIQUE: Imaging protocol: Real-time ultrasound scan of the arteries of the bilateral lower extremities with 2-D martinez scale, color Doppler flow and spectral waveform analysis. Images documented and saved. COMPARISON: CT foot RT w con [id number] 08/26/2022 7:46 PM FINDINGS: Right external iliac artery: 112.7 cm/sec, biphasic. Right common femoral artery: 112 cm/sec, biphasic. Right superficial femoral artery: Proximal SFA 123 cm/sec, biphasic. Mid SFA 112 cm/sec, biphasic. Distal SFA 118 cm/sec, biphasic. Right popliteal artery: Popliteal 90 cm/sec, biphasic. Right calf/foot arteries: [employer]ATOR 86 cm/sec, biphasic. Dorsalis pedis 86 cm/sec, monophasic with increased diastolic flow and spectral broadening. Left external iliac artery: 127.3 cm/sec, biphasic. Left common femoral artery: 109 cm/sec, biphasic. Left profunda femoris artery: cm/sec, biphasic. Left superficial femoral artery: Proximal SFA 98 cm/sec, biphasic. Mid SFA 113 cm/sec, biphasic. Distal SFA 98 cm/sec, biphasic. Left popliteal artery: Popliteal 73 cm/sec, biphasic. Left calf/foot arteries: GROOVER OPERATOR 13 cm/sec, monophasic, spectral broadening, increased diastolic flow. Dorsalis pedis 75 cm/se, monophasic, spectral broadening c. Right Ankle-Brachial Index: 0.59. Left Ankle-Brachial Index: 0.47. US/CV arterial duplex [facility] [id number] IMPRESSION: Monophasic flow bilateral dorsalis pedis, left posterior tibial arteries consistent with peripheral arterial disease.
== END 2025-02-05 09:17 | disposition home or self-care (01) ==
PROVIDERS: Visit Provider Family Medicine
DX: M79.605 Pain in left leg (principal)
CPT/HCPCS: 93925

== ENCOUNTER 2025-04-28 07:49 | Outpatient (CLI) | payer MEDICAID, SELFPAY ==
--- NOTE | 2025-04-28 07:53 | US_ITS ---
WS: [id number] RIGHT UPPER QUADRANT ULTRASOUND HISTORY: RUQ PAIN COMPARISON: 08/27/2022 Liver: 19.7 cm in length. Mildly enlarged liver. The entire liver is not well visualized due to body habitus and steatosis. No mass or intrahepatic duct dilatation identified. Portal Vein: Normal hepatopetal flow with monophasic waveform. Gallbladder: Normally distended gallbladder with numerous stones. No pericholecystic fluid. Stone burden appears to be increased since the prior study. CBD: 0.4 cm Pancreas: Completely obscured. Right kidney: 9.0 cm in length. Normal size and echogenicity. No hydronephrosis or mass. Aorta and IVC: Unremarkable abdominal aorta and IVC. No ascites. US/US abdomen limited [id number] IMPRESSION: 1. Cholelithiasis. No evidence for acute cholecystitis. Stone burden has incre ased since 08/27/2022. 2. Mild hepatic steatosis and hepatomegaly. 3. Normal common bile duct.
== END 2025-04-28 07:50 | disposition home or self-care (01) ==
LOC: RAD 07:50
PROVIDERS: PCP Family Medicine; Visit Provider Family Medicine
DX: R10.11 Right upper quadrant pain (principal); K76.0 Fatty (change of) liver, not elsewhere classified; R16.0 Hepatomegaly, not elsewhere classified
CPT/HCPCS: 76705